=== PATIENT | female | born 1935 | race Caucasian/White ===

== ENCOUNTER 2016-10-29 10:32 | Emergency (ER) | payer MEDICARE, MEDICAID ==
[~2016-10-29] VITALS: Ht 172.7 cm; Wt 65.8 kg
[2016-10-29 12:25] VITALS: BP 152/105
== END 2016-10-29 12:25 | disposition home or self-care (01) ==
LOC: ER 10:34
DX: Z95.810 Presence of automatic (implantable) cardiac defibrillator (principal); I10 Essential (primary) hypertension
CPT/HCPCS: 71010; 93005; 99284; A4606; Z7610